=== PATIENT | female | born 1975 | race Caucasian/White ===

== ENCOUNTER 2024-05-05 06:50 | Day surgery (SDC) | payer BC ==
[2024-05-05] MEDS: Lactated Ringers 1,000 ML IV SCH (07:16)
[2024-05-05] MEDS ORDERED: Ketamine 200 MG/20 ML MDV ONE (07:30)
[2024-05-05] MEDS ORDERED: fentaNYL 50 MCG/ML SDV ONE (07:30)
[2024-05-05] MEDS ORDERED: Ondansetron 4 MG/2 ML SDV ONE (07:30)
[2024-05-05] MEDS ORDERED: Phenylephrine 1% 10 MG/ML SDV ONE (07:30)
[2024-05-05] MEDS ORDERED: Lidocaine 2% 20 ML MDV ONE (07:30)
[2024-05-05] MEDS ORDERED: Propofol 200 MG/20 ML SDV ONE ×2 (07:30)
== END 2024-05-05 09:11 | disposition home or self-care (01) ==
LOC: CC.SDS 06:50
PROVIDERS: ATTEND Family Medicine
DX: K29.50 Unspecified chronic gastritis without bleeding (principal); K59.09 Other constipation; F41.8 Other specified anxiety disorders; Z79.899 Other long term (current) drug therapy; K21.9 Gastro-esophageal reflux disease without esophagitis
CPT/HCPCS: 00813; 87081; J2371; J2405; J2704; J3010; J3490; J7120